=== PATIENT | female | born 1985 | race Two or more races ===

== ENCOUNTER 2017-08-12 15:42 | Inpatient (IN) | payer MEDICAID ==
[~2017-08-12] VITALS: Ht 154.9 cm; Wt 78.5 kg
[2017-08-12] MEDS ORDERED: LACTATED RINGER'S 1,000 ML IV SCH (15:51)
[2017-08-12] MEDS ORDERED: LACT. RINGERS/OXYTOCIN 20UNITS 1,000 ML IV SCH ×2 (15:51→17:19)
[2017-08-12] MEDS ORDERED: DERMOPLAST 60ML BOTTLE TOP PRN (16:00)
[2017-08-12] MEDS ORDERED: WITCH HAZEL-GLYCERIN PAD TOP PRN (16:00)
[2017-08-12] MEDS ORDERED: NALBUPHINE HCL 10 MG/1ml INJECTION IV PRN (16:00)
[2017-08-12] MEDS ORDERED: LIDOCAINE 2%HCL (LOCAL ANESTH.) INJ 20ML MDV IJ PRN (16:00)
[2017-08-12] MEDS ORDERED: PHISODERM TOP SOLN 240ML BTL TOP PRN (16:00)
[2017-08-12 16:39] LABS: Basophils # (auto) 0 uL; Basophils % (auto) 0.2 % (0.0-2.0); Eosinophils # (auto) 0.1 uL; Eosinophils % (auto) 0.5 % (0.0-7.0); Hematocrit 34.9 % (36.0-46.0); Hemoglobin 11.2 g/dL (12.2-16.2); Lymphocytes % (auto) 30.7 % (10.0-50.0); Mean Corpuscular Hemoglobin 23.5 pg (28.0-32.0); Mean Corpuscular Hgb Conc. 32.2 g/dL (32.0-36.0); Mean Corpuscular Volume 73.1 fL (80.0-100.0); Mean Platelet Volume 6.9 fL (6.9-10.8); Monocytes # (auto) 0.6 uL; Monocytes % (auto) 6.5 % (0.0-12.0); Neutrophils % (auto) 62.1 % (37.0-80.0); Nucleated Red Blood Cells % 0.2 %; Platelet Count (auto) 374 10^3/uL (140-450); Red Cell Distribution Width 16.1 % (11.8-14.3); White Blood Cell 9.7 10^3/uL (4.4-10.8)
[2017-08-12 16:47] LABS: Urine Bilirubin Negative (Negative); Urine Blood Negative /uL (Negative); Urine Color Yellow (Yellow); Urine Glucose Normal (Normal); Urine Ketone Negative (Negative); Urine Mucus FEW (None Seen); Urine Nitrite Negative (Negative); Urine RBC 2 /hpf (0 - 4); Urine Squamous Epithelial Cell FEW /hpf (<5); Urine Urobilinogen Normal (Negative); Urine pH 5.5 (5.0-8.0)
[2017-08-12 16:52] LABS: INR 0.88 (0.9-1.15); Partial Thromboplastin Time 25.4 sec (22.64-33.71); Prothrombin Time 9.6 sec (9.37-12.3)
[2017-08-12 16:59] LABS: Albumin 2.7 g/dL (3.4-5.0); BUN/Creatinine Ratio 12.5; Bilirubin, Total 0.3 mg/dL (0.2-1.0); Calcium 8.4 mg/dL (8.5-10.1); Potassium 3.6 mmol/L (3.5-5.1); Total Protein 7.8 g/dL (6.4-8.2)
[2017-08-12] MEDS ORDERED: TERBUTALINE SULFATE 1 MG/ML 1ML VIAL SC ONE (17:30)
[2017-08-12] MEDS ORDERED: METHYLERGONOVINE MALEATE 0.2 MG/ML AMP IM ONE ×2 (18:04→18:10)
[2017-08-12] MEDS ORDERED: IBUPROFEN 600 MG TAB PO ONE (18:57)
[2017-08-13 04:30] VITALS: BP 112/71
[2017-08-13] MEDS: IBUPROFEN 600 MG TAB PO PRN ×3 (04:32→16:44)
[2017-08-13 06:36] VITALS: BP 96/59
[2017-08-13] MEDS ORDERED: PREN-96 PO (11:25)
[2017-08-13 12:00] VITALS: BP 102/66
[2017-08-13 16:00] VITALS: BP 103/65
[2017-08-13 16:37] VITALS: BP 104/59
[2017-08-13 19:50] VITALS: BP 105/65
== END 2017-08-13 20:58 | disposition home or self-care (01) | DRG 560 ==
LOC: LDRP 15:42 → OBSVTOIN 15:42 → NUR 15:58 → LDRP 16:03
PROVIDERS: ADMIT Specialist; ATTEND Specialist
PROC: 10E0XZZ Delivery of Products of Conception, External Approach (ICD-10-PCS; principal; 2017-08-12)
PROC: 0HQ9XZZ Repair Perineum Skin, External Approach (ICD-10-PCS; 2017-08-12)
DX: O62.3 Precipitate labor (principal); O70.0 First degree perineal laceration during delivery; Z37.0 Single live birth; Z3A.38 38 weeks gestation of pregnancy
CPT/HCPCS: 36415; 59025; 59409; 80053; 81001; 85025; 85610; 85730; 86850; 86900; 86901; 96365; 96366; 96372; J2590